=== PATIENT | female | born 1970 | race Caucasian/White ===

== ENCOUNTER → 2018-02-08 | Outpatient (REF) | payer OTHER | LOC: M SFHCLERA 20:56 | DX: K52.9 Noninfective gastroenteritis and colitis, unspecified (principal) ==

== ENCOUNTER → 2018-10-10 | Outpatient (REF) | payer OTHER | LOC: M SFHCLERA 17:40 | DX: R53.81 Other malaise (principal) ==

== ENCOUNTER → 2018-10-10 | Outpatient (CLI) | payer OTHER | LOC: M LRY 17:54 | DX: R19.7 Diarrhea, unspecified (principal) | CPT/HCPCS: 74021 ==

== ENCOUNTER 2019-01-14 16:19 | Emergency (ER) | payer OTHER ==
[~2019-01-14] VITALS: Ht 160 cm; Wt 77.3 kg
[2019-01-14] MEDS ORDERED: GABA-1171 (18:28)
[2019-01-14] MEDS ORDERED: VITA100066 PO (18:28)
[2019-01-14] MEDS ORDERED: LIDOCAINE W/EPINEPHRINE 1% 20ML VIAL SC ONE (18:45)
[2019-01-14] MEDS ORDERED: BUPIVACAINE HCL 0.5% 10 ML VIAL SC ONE (18:45)
[2019-01-14] MEDS ORDERED: CETACAINE SPRAY 5GM TOP ONE (18:45)
[2019-01-14] MEDS ORDERED: NAPR-885 PO (19:12)
[2019-01-14] MEDS ORDERED: CLEO300C2 PO (19:12)
[2019-01-14] MEDS ORDERED: CLINDAMYCIN 150 MG CAP PO ONE (19:15)
[2019-01-14 19:33] VITALS: BP 136/88
[2019-01-14] MEDS ORDERED: DIFL150T PO (20:02)
== END 2019-01-14 19:38 | disposition home or self-care (01) ==
LOC: M ED 16:19
DX: K08.89 Other specified disorders of teeth and supporting structures (principal); Z79.899 Other long term (current) drug therapy

== ENCOUNTER 2019-07-26 18:34 | Emergency (ER) | payer OTHER ==
[~2019-07-26] VITALS: Ht 160 cm; Wt 78.7 kg
[~2019-07-26 18:34] MED LIST: CLEO300C2 PO; DIFL150T PO; GABA-1171; NAPR-885 PO; VITA100066 PO
[2019-07-26] MEDS ORDERED: ACET-897 PO (21:04)
[2019-07-26] MEDS ORDERED: KETO10TAB PO (21:25)
[2019-07-26] MEDS ORDERED: KETOROLAC TROMETHAMINE 10 MG TAB PO ONE (21:30)
[2019-07-26 21:53] VITALS: BP 122/68
--- NOTE | 2019-07-27 07:14 | REP ---
LEFT KNEE, FIVE VIEWS: FINDINGS: There is no evidence of an acute fracture, dislocation or intrinsic bone disease. IMPRESSION: No fracture or dislocation. Electronically Signed by Wander Simmons MD 07/28/2019 05:41 P
== END 2019-07-26 22:43 | disposition home or self-care (01) ==
LOC: M ED 18:34
DX: M25.562 Pain in left knee (principal); Z79.899 Other long term (current) drug therapy

== ENCOUNTER → 2019-10-11 | Outpatient (CLI) | payer OTHER ==
[~2019-10-11] MED LIST changes: +ACET-897 PO; +KETO10TAB PO
--- NOTE | 2019-10-11 13:57 | REP ---
MRI LEFT KNEE: TECHNIQUE: Axial proton density fat saturation, sagittal proton density T2 STIR, water excitation, coronal proton density, proton density fat saturation. There is a tear of the posterior horn of the medial meniscus. The lateral meniscus appears intact. The cruciate and collateral ligaments are intact. Extensor mechanism is intact. There is mild global chondromalacia. There is a more moderate degree of diffuse chondromalacia in the medial joint compartment. There is no bone marrow edema or occult fracture. There is a mild joint effusion diffusely. Septated cyst is seen along the posterior surface of the tendon of medial head of gastrocnemius at its insertion onto the medial femoral condyle. This cyst measures 1.6 x 0.7 x 1.1 cm. IMPRESSION: There is a tear of the posterior horn of the medial meniscus. The lateral meniscus appears intact, as do the cruciate and collateral ligaments. 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 Small diffuse joint effusion. Septated cyst posterior to the medial femoral condyle. Electronically Signed by Wander Simmons MD 10/11/2019 03:54 P
== END ==
LOC: M PLARAD 10:17
PROVIDERS: ATTEND Orthopaedic Surgery Sports Medicine
DX: M25.562 Pain in left knee (principal)

== ENCOUNTER → 2019-11-08 | Outpatient (CLI) | payer OTHER ==
--- NOTE | 2019-11-08 15:24 | REPMRS ---
Patient History The patient states she has not had a clinical breast exam in over a year. No known family history of cancer. No Hormone Replacement Therapy Digital Woman Screen Mammo: November 08, 2019 - Exam #: [id number] Bilateral CC and MLO view(s) were taken. Technologist: Rebecca Valerio, Technologist No prior studies available for comparison. FINDINGS: There are scattered fibroglandular densities. There is no evidence of dominant mass, architectural distortion, or grouped microcalcification typical of malignancy. 3-D tomosynthesis shows no additional findings. Assessment: BI-RADS/ACR category 1 mammogram. Negative Mammogram. Recommendation Routine screening mammogram of both breasts in 1 year (for women over age 40). This patient's Lifetime Breast Cancer RIsk is estimated at 9.4 %. This mammogram was interpreted with the aid of an FDA-approved computer-aided dectection system. Electronically Signed By: Eros Kuhn MD 11/08/19 [id number]
== END ==
LOC: M WHC 14:08
PROVIDERS: ATTEND Nurse Practitioner Adult Health
DX: Z12.31 Encounter for screening mammogram for malignant neoplasm of breast (principal)

== ENCOUNTER → 2020-03-06 | Outpatient (CLI) | payer OTHER ==
--- NOTE | 2020-03-06 17:05 | REP ---
REASON FOR EXAM: Menorrhagia. There are no priors for comparison. Transvesical and transvaginal imaging was obtained. The uterus measures 8.5 x 5 x 6 cm. Within the anterior lower uterine segment, there is a hypoechoic 1.2 x 1.3 x 0.6 cm sized area. Seen in the region of the upper cervix, there is a singularly septated anechoic 1.2 x 1.2 x 1 cm sized cyst. Within the posterior uterine body, there is a 2.5 x 2.2 x 2 cm sized hypoechoic lesion. The endometrial echocomplex is smooth and unremarkable appearing measuring 5 mm in thickness. The right ovary measures 2.3 x 1.3 x 1.3 cm and is within normal limits. The left ovary measures 1.5 x 1.1 x 1.3 cm and is within normal limits. The urinary bladder measures approximately 6.4 x 4.6 x 4.3 cm. IMPRESSION: 1. Uterine myomatous changes in the anterior uterus and within the posterior uterus as described above. 2. There is a septated nabothian cyst. 3. It should be mentioned that the technologist has placed on the patient's worksheet scanned into the [employer] that the examination is technically limited due to the patient's intestinal gas pattern and body habitus.
== END ==
LOC: M WHC 14:56
PROVIDERS: ATTEND Specialist
DX: N92.0 Excessive and frequent menstruation with regular cycle (principal); N88.8 Other specified noninflammatory disorders of cervix uteri

== ENCOUNTER → 2022-04-14 | Outpatient (CLI) | payer OTHER ==
[~2022-04-14] MED LIST changes: +NORE0.353 PO; +VERA40TA; +ZOLM2.5T20; +ZONI25CA13
== END ==
LOC: M WHC 14:58
PROVIDERS: ATTEND Nurse Practitioner Adult Health
DX: Z12.31 Encounter for screening mammogram for malignant neoplasm of breast (principal)

== ENCOUNTER → 2022-06-17 | Outpatient (CLI) | payer OTHER ==
[~2022-06-17] MED LIST changes: +NORT50CA PO; +PRED20TA PO
[2022-06-17 17:45] LABS: HEMATOCRIT 37.6 % (36.0-47.0); HEMOGLOBIN 12.4 g/dl (12.0-15.5); MEAN CORPUSCULAR HEMOGLOBIN 33.6 pg (27.0-33.0); MEAN CORPUSCULAR VOLUME 101.9 fl (80.0-96.0); PLATELET COUNT, AUTOMATED 327 10^3/uL (150-450); RED BLOOD COUNT 3.69 10^6/uL (4.00-5.40); WHITE BLOOD COUNT 14.7 10^3/uL (4.0-10.0)
[2022-06-17 18:46] LABS: ALT/SGPT 11 U/L (12-78); BILIRUBIN,TOTAL 0.4 MG/DL (0.2-1.0); BLOOD UREA NITROGEN 11 MG/DL (7-18); CALCIUM LEVEL 8.8 MG/DL (8.5-10.1); CARBON DIOXIDE LEVEL 25 MEQ/L (21-32); CHLORIDE LEVEL 108 MEQ/L (98-107); CHOLESTEROL LEVEL 211 MG/DL (<200); CHOLESTEROL RISK RATIO 3.246 (<5); CREATININE FOR GFR 0.63 MG/DL (0.55-1.30); GLOMERULAR FILTRATION RATE > 60.0 (>51); GLUCOSE, FASTING 110 MG/DL (70-100); HDL CHOLESTEROL 65 MG/DL (>40); LDL CHOLESTEROL 121 MG/DL (<100); MAGNESIUM LEVEL 1.8 MG/DL (1.8-2.4); NON-HDL-C 146 MG/DL; POTASSIUM SERUM 4.2 MEQ/L (3.5-5.1); SODIUM LEVEL 139 MEQ/L (136-145); THYROID STIMULATING HORMONE 0.714 uIU/ML (0.358-3.740); TOTAL PROTEIN 7.5 GM/DL (6.4-8.2); TRIGLYCERIDES LEVEL 125 MG/DL (<150)
[2022-06-17 19:13] LABS: TOTAL 25(OH) VITAMIN D 81.5 NG/ML (30.0-100.0); VITAMIN B12 LEVEL 574 PG/ML (247-911)
== END ==
LOC: M PLALAB 15:14
PROVIDERS: ATTEND Nurse Practitioner Adult Health
DX: Z00.00 Encounter for general adult medical examination without abnormal findings (principal); E55.9 Vitamin D deficiency, unspecified; Z13.29 Encounter for screening for other suspected endocrine disorder; Z13.21 Encounter for screening for nutritional disorder; Z13.1 Encounter for screening for diabetes mellitus

== ENCOUNTER 2022-10-25 14:13 | Emergency (ER) | payer OTHER ==
[~2022-10-25] VITALS: Ht 165.1 cm; Wt 75.0 kg
[2022-10-25] MEDS ORDERED: SUMA100T2 (14:19)
[2022-10-25] MEDS ORDERED: VENL75CA47 (14:20)
[2022-10-25] MEDS ORDERED: NS 1,000 ML IV ONE ×2 (18:00→18:05)
[2022-10-25] MEDS ORDERED: KETOROLAC 30 MG/ML 1ML VIAL IM ONE (18:05)
[2022-10-25] MEDS ORDERED: METOCLOPRAMIDE INJ 10MG/2ML VIAL IV ONE (18:05)
[2022-10-25 18:30] LABS: BASO % 0.5 % (0.0-1.0); EOS # 0.5 10^3/uL (0.0-0.5); EOS % 5.5 % (0.0-3.0); HEMATOCRIT 44.2 % (36.0-47.0); HEMOGLOBIN 14.5 g/dl (12.0-15.5); LYMPH # 2.4 10^3/uL (1.5-5.0); LYMPH % 28.3 % (24.0-44.0); MEAN CORPUSCULAR HEMOGLOBIN 33.3 pg (27.0-33.0); MEAN CORPUSCULAR HGB CONC 32.8 g/dl (32.0-36.5); MEAN CORPUSCULAR VOLUME 101.4 fl (80.0-96.0); MONO # 0.6 10^3/uL (0.0-0.8); MONO % 6.4 % (2.0-8.0); NEUTROPHILS % 59.1 % (36.0-66.0); PLATELET COUNT, AUTOMATED 324 10^3/uL (150-450); RED BLOOD COUNT 4.36 10^6/uL (4.00-5.40); WHITE BLOOD COUNT 8.5 10^3/uL (4.0-10.0)
[2022-10-25] MEDS ORDERED: KETOROLAC 30 MG/ML 1ML VIAL IV ONE (18:30)
[2022-10-25 18:53] LABS: ALBUMIN 4.1 G/DL (3.2-5.2); ALKALINE PHOSPHATASE 68 U/L (46-116); ALT/SGPT < 9 U/L (7.0-40); AST/SGOT 13 U/L (<34); BILIRUBIN,DIRECT < 0.1 MG/DL (<0.4); BILIRUBIN,TOTAL 0.3 MG/DL (0.3-1.2); BLOOD UREA NITROGEN 10 MG/DL (9-23); CALCIUM LEVEL 8.9 MG/DL (8.5-10.1); CARBON DIOXIDE LEVEL 26 MMOL/L (20-31); CHLORIDE LEVEL 107 MMOL/L (98-107); CREATININE FOR GFR 0.66 MG/DL (0.55-1.30); GLOMERULAR FILTRATION RATE > 60.0 (>51); GLUCOSE, FASTING 92 MG/DL (60-100); POTASSIUM SERUM 4.1 MMOL/L (3.5-5.1); SODIUM LEVEL 140 MMOL/L (136-145)
[2022-10-25 19:01] LABS: ERYTHROCYTE SEDIMENTATION RATE 9 mm/hr (0-30)
[2022-10-25] MEDS ORDERED: NORCO, ANEXSIA 5/325MG TABLET (HYDROcodone/ACETAMINOPHEN) PO ONE (19:30)
[2022-10-25] MEDS ORDERED: methocarbamoL 750 MG TAB PO ONE (19:30)
[2022-10-25 20:40] VITALS: BP 135/82
== END 2022-10-25 20:42 | disposition home or self-care (01) ==
LOC: M ED 14:13
DX: G43.909 Migraine, unspecified, not intractable, without status migrainosus (principal); Z79.811 Long term (current) use of aromatase inhibitors; Z79.899 Other long term (current) drug therapy
CPT/HCPCS: 80048; 80076; 85025; 85652; 86140; 96361; 96374; 96375; 99284; J1100; J1885; J2765

== ENCOUNTER → 2022-11-09 | Outpatient (REF) | payer OTHER ==
[~2022-11-09] MED LIST changes: +SUMA100T2; +VENL75CA47
[2022-11-09 21:17] LABS: APPEARANCE, URINE MANUAL CLEAR (CLEAR); COLOR, URINE MANUAL YELLOW (YELLOW)
[2022-11-09 21:18] LABS: SPECIFIC GRAVITY,URINE MANUAL 1.025 (1.002-1.035)
[2022-11-09 21:19] LABS: BILIRUBIN, URINE MANUAL NEGATIVE (NEGATIVE); BLOOD URINE MANUAL NEGATIVE (NEGATIVE); GLUCOSE, URINE (UA) MANUAL NEGATIVE (NEGATIVE); KETONE, URINE MANUAL NEGATIVE (NEGATIVE); LEUKOCYTE ESTERASE, URINE MAN POSITIVE (NEGATIVE); NITRITE, URINE MANUAL NEGATIVE (NEGATIVE); PROTEIN, URINE MANUAL NEGATIVE (NEGATIVE); UROBILINOGEN, URINE MANUAL NORMAL (NORMAL)
[2022-11-09 21:56] LABS: BACTERIA, URINE SMALL AMOUNT; HYALINE CAST, URINE NONE SEEN /lpf (0-1); RBC, URINE 0-1 /hpf (0-3); SQUAMOUS EPITHELIAL CELL URINE LARGE AMOUNT /hpf (SMALL AMT); WBC, URINE 15-20 /hpf (0-3); YEAST, URINE MOD AMOUNT
== END ==
LOC: M LAB REF 16:30
PROVIDERS: ATTEND Physician Assistant
DX: N39.0 Urinary tract infection, site not specified (principal)

== ENCOUNTER 2022-11-16 13:09 | Emergency (ER) | payer OTHER ==
[~2022-11-16] VITALS: Ht 165.1 cm; Wt 74.1 kg
[2022-11-16] MEDS ORDERED: FREM225A (13:24)
[2022-11-16] MEDS ORDERED: AMOX875T (13:24)
[2022-11-16] MEDS ORDERED: GNP250TA9 PO (13:25)
[2022-11-16] MEDS ORDERED: PROG1CAP8 PO (13:25)
[2022-11-16 14:19] LABS: RSV AMPLIFICATION NEGATIVE (NEGATIVE)
[2022-11-17] MEDS ORDERED: ALBUTEROL SULFATE 2.5MG/0.5ML INH NEB SOLN NEB ONE (00:55)
[2022-11-17] MEDS ORDERED: ACETAMINOPHEN 325 MG TAB PO ONE (01:20)
[2022-11-17] MEDS ORDERED: predniSONE 20 MG TAB PO ONE (02:20)
[2022-11-17] MEDS ORDERED: ALBUTEROL 90 MCG/ACT 8GM HFA INHALER INH ONE (02:35)
[2022-11-17] MEDS ORDERED: PRED20TA PO (02:38)
[2022-11-17 02:46] VITALS: BP 126/77
== END 2022-11-16 20:06 | disposition left against medical advice (07) ==
LOC: M ED 13:09
DX: Z53.21 Procedure and treatment not carried out due to patient leaving prior to being seen by health care provider (principal)

== ENCOUNTER 2023-01-05 10:24 | Emergency (ER) | payer MEDICAID, OTHER ==
[~2023-01-05] VITALS: Ht 165.1 cm; Wt 71.5 kg
[~2023-01-05 10:24] MED LIST changes: +AMOX875T; +FREM225A; +GNP250TA9 PO; +PROG1CAP8 PO
[2023-01-05 13:32] VITALS: BP 124/80
== END 2023-01-05 13:33 | disposition home or self-care (01) ==
LOC: M ED 10:24
DX: J02.9 Acute pharyngitis, unspecified (principal); B34.8 Other viral infections of unspecified site; I10 Essential (primary) hypertension; G43.909 Migraine, unspecified, not intractable, without status migrainosus; Z79.1 Long term (current) use of non-steroidal anti-inflammatories (NSAID); Z79.899 Other long term (current) drug therapy

== ENCOUNTER 2023-04-27 15:31 | Emergency (ER) | payer MEDICAID, OTHER ==
[~2023-04-27] VITALS: Ht 160 cm; Wt 70.0 kg
[2023-04-27] MEDS ORDERED: VENL150C43 (15:51)
[2023-04-27] MEDS ORDERED: ZOLM2.5T20 (15:51)
[2023-04-27] MEDS ORDERED: NS 1,000 ML IV ONE (16:50)
[2023-04-27] MEDS ORDERED: KETOROLAC 30 MG/ML 1ML VIAL IV ONE (16:50)
[2023-04-27] MEDS ORDERED: ONDANSETRON 4MG 2ML VIAL IV ONE (16:50)
[2023-04-27 17:48] LABS: BASO # 0.1 10^3/uL (0.0-0.2); EOS # 0.2 10^3/uL (0.0-0.5); EOS % 2.2 % (0.0-3.0); HEMATOCRIT 43.7 % (36.0-47.0); HEMOGLOBIN 14.3 g/dl (12.0-15.5); LYMPH # 2.3 10^3/uL (1.5-5.0); LYMPH % 29.4 % (24.0-44.0); MEAN CORPUSCULAR HEMOGLOBIN 33.3 pg (27.0-33.0); MEAN CORPUSCULAR HGB CONC 32.7 g/dl (32.0-36.5); MEAN CORPUSCULAR VOLUME 101.6 fl (80.0-96.0); MONO # 0.4 10^3/uL (0.0-0.8); MONO % 5.5 % (2.0-8.0); NEUTROPHILS # 4.9 10^3/uL (1.5-8.5); NEUTROPHILS % 61.6 % (36.0-66.0); PLATELET COUNT, AUTOMATED 297 10^3/uL (150-450); WHITE BLOOD COUNT 7.9 10^3/uL (4.0-10.0)
[2023-04-27 18:02] LABS: ERYTHROCYTE SEDIMENTATION RATE 14 mm/hr (0-30)
[2023-04-27 18:13] LABS: C REACTIVE PROTEIN QUANTITATIV 0.5 MG/DL (<1.0); MAGNESIUM LEVEL 1.8 MG/DL (1.8-2.4)
[2023-04-27 18:17] LABS: FREE T4 0.75 NG/DL (0.89-1.76)
[2023-04-27 18:18] LABS: THYROID STIMULATING HORMONE 1.583 uIU/ML (0.55-4.78)
[2023-04-27] MEDS ORDERED: SUMAtriptan SUCCINATE 6MG/0.5ML VIAL SC ONE (18:50)
[2023-04-27] MEDS ORDERED: diphenhydrAMINE 50MG/ML VIAL IV ONE (18:50)
[2023-04-27] MEDS ORDERED: VALPROATE SOD INJ 1,000 MG in D5W 50 ML IV ONE (20:45)
[2023-04-27 21:45] VITALS: O2SAT 97
[2023-04-27 22:23] VITALS: BP 122/70; TEMP 97.1
== END 2023-04-27 22:38 | disposition home or self-care (01) ==
LOC: M ED 15:31
DX: G43.909 Migraine, unspecified, not intractable, without status migrainosus (principal); F10.10 Alcohol abuse, uncomplicated; Z79.1 Long term (current) use of non-steroidal anti-inflammatories (NSAID); Z79.899 Other long term (current) drug therapy
CPT/HCPCS: 70450; 72125; 80047; 81001; 83735; 84439; 84443; 84702; 85025; 85652; 86140; 96365; 96372; 96375; 99284; J1100; J1200; J1885; J2405; J3030

== ENCOUNTER 2023-09-10 13:30 | Emergency (ER) | payer OTHER ==
[~2023-09-10] VITALS: Ht 160 cm; Wt 73.3 kg
[~2023-09-10 13:30] MED LIST changes: +VENL150C43
[2023-09-10] MEDS ORDERED: MECLIZINE 25 MG TABLET PO ONE (16:50)
[2023-09-10] MEDS ORDERED: METOCLOPRAMIDE INJ 10MG/2ML VIAL IV ONE (16:50)
[2023-09-10] MEDS ORDERED: diphenhydrAMINE 50MG/ML VIAL IV ONE (16:50)
[2023-09-10] MEDS ORDERED: NS 1,000 ML IV ONE ×2 (16:50→20:25)
[2023-09-10] MEDS ORDERED: KETOROLAC 30 MG/ML 1ML VIAL IV ONE (16:50)
[2023-09-10 18:03] LABS: BASO # 0.1 10^3/uL (0.0-0.2); BASO % 0.6 % (0.0-1.0); EOS # 0.5 10^3/uL (0.0-0.5); EOS % 4.4 % (0.0-3.0); HEMATOCRIT 40.5 % (36.0-47.0); HEMOGLOBIN 14.1 g/dl (12.0-15.5); LYMPH # 2.8 10^3/uL (1.5-5.0); LYMPH % 24.8 % (24.0-44.0); MEAN CORPUSCULAR HEMOGLOBIN 34.2 pg (27.0-33.0); MEAN CORPUSCULAR HGB CONC 34.8 g/dl (32.0-36.5); MEAN CORPUSCULAR VOLUME 98.3 fl (80.0-96.0); MONO # 0.7 10^3/uL (0.0-0.8); MONO % 6.4 % (2.0-8.0); NEUTROPHILS # 7.3 10^3/uL (1.5-8.5); NEUTROPHILS % 63.3 % (36.0-66.0); PLATELET COUNT, AUTOMATED 326 10^3/uL (150-450); RED BLOOD COUNT 4.12 10^6/uL (4.00-5.40); WHITE BLOOD COUNT 11.5 10^3/uL (4.0-10.0)
[2023-09-10 18:16] LABS: INR 1.09; PROTHROMBIN TIME 13.8 SECONDS (12.5-14.5)
[2023-09-10 18:17] LABS: PARTIAL THROMBOPLASTIN TIME 29.7 SECONDS (24.8-34.2)
[2023-09-10 18:23] LABS: CK-MB VALUE MASS < 1.0 NG/ML (<3.6)
[2023-09-10 18:25] LABS: BLOOD UREA NITROGEN 9 MG/DL (9-23); CALCIUM LEVEL 8.8 MG/DL (8.5-10.1); CARBON DIOXIDE LEVEL 24 MMOL/L (20-31); CHLORIDE LEVEL 105 MMOL/L (98-107); CPK CREATINE PHOSPHOKINASE 16 U/L (34-145); CREATININE FOR GFR 0.64 MG/DL (0.55-1.30); GLOMERULAR FILTRATION RATE > 60.0 (>51); GLUCOSE, FASTING 84 MG/DL (60-100); MB/CK RELATIVE INDEX 6.25 (< OR =4); POTASSIUM SERUM 4.2 MMOL/L (3.5-5.1); SODIUM LEVEL 138 MMOL/L (136-145)
[2023-09-10] MEDS ORDERED: HALOPERIDOL 5MG/ML 1ML VIAL IV ONE (18:25)
[2023-09-10 18:27] LABS: THYROID STIMULATING HORMONE 2.126 uIU/ML (0.55-4.78)
[2023-09-10 18:28] LABS: FREE T4 0.79 NG/DL (0.89-1.76)
[2023-09-10] MEDS ORDERED: ONDA4TAB6 PO (21:33)
[2023-09-10 21:44] VITALS: BP 97/54; TEMP 98.1; O2SAT 100
== END 2023-09-10 22:09 | disposition home or self-care (01) ==
LOC: M ED 13:30
DX: G43.909 Migraine, unspecified, not intractable, without status migrainosus (principal); E86.0 Dehydration; R42 Dizziness and giddiness; Z79.83 Long term (current) use of bisphosphonates; Z79.1 Long term (current) use of non-steroidal anti-inflammatories (NSAID); Z79.811 Long term (current) use of aromatase inhibitors; Z79.899 Other long term (current) drug therapy
CPT/HCPCS: 70450; 72125; 80048; 82550; 82553; 83605; 83735; 84439; 84443; 85025; 85610; 85730; 93005; 96361; 96374; 96375; 99284; J1200; J1630; J1885; J2765

== ENCOUNTER → 2023-10-11 | Outpatient (REF) | payer OTHER ==
[~2023-10-11] MED LIST changes: +ONDA4TAB6 PO
== END ==
LOC: M LAB REF 16:12
PROVIDERS: ATTEND Physician Assistant Medical
DX: B34.9 Viral infection, unspecified (principal)

== ENCOUNTER → 2023-10-31 | Outpatient (REF) | payer OTHER | LOC: M LAB REF 21:57 | PROVIDERS: ATTEND Physician Assistant Medical | DX: J02.9 Acute pharyngitis, unspecified (principal) ==

== ENCOUNTER → 2023-12-20 | Outpatient (REF) | payer OTHER | LOC: M LAB REF 21:24 | PROVIDERS: ATTEND Physician Assistant | DX: J02.9 Acute pharyngitis, unspecified (principal) ==

== ENCOUNTER 2024-04-04 16:39 | Emergency (ER) | payer OTHER ==
[~2024-04-04] VITALS: Ht 160 cm; Wt 75.6 kg
[2024-04-04] MEDS ORDERED: CETI-24 (16:54)
[2024-04-04] MEDS ORDERED: SUMA20SP4 (16:54)
[2024-04-04] MEDS ORDERED: VERA80TA3 (16:54)
[2024-04-04] MEDS ORDERED: FLUTISP (16:54)
[2024-04-04] MEDS ORDERED: ZONI100C67 (16:54)
[2024-04-04] MEDS ORDERED: ISOVUE-370 76% 100ML VIAL As Ordered ONE (17:58)
[2024-04-04] MEDS: diphenhydrAMINE 50MG/ML VIAL IV STA (18:18)
[2024-04-04] MEDS: KETOROLAC 30 MG/ML 1ML VIAL IV ONE (18:18)
[2024-04-04] MEDS: ACETAMINOPHEN 500 MG TAB PO ONE (18:19)
[2024-04-04] MEDS: METOCLOPRAMIDE INJ 10MG/2ML VIAL IV ONE (18:19)
[2024-04-04 18:45] LABS: BASO # 0.1 10^3/uL (0.0-0.2); BASO % 1.2 % (0.0-1.0); EOS # 0.3 10^3/uL (0.0-0.5); EOS % 3.4 % (0.0-3.0); HEMATOCRIT 41.1 % (36.0-47.0); HEMOGLOBIN 13.9 g/dl (12.0-15.5); LYMPH # 3.1 10^3/uL (1.5-5.0); LYMPH % 40.1 % (24.0-44.0); MEAN CORPUSCULAR HEMOGLOBIN 34.3 pg (27.0-33.0); MEAN CORPUSCULAR HGB CONC 33.8 g/dl (32.0-36.5); MEAN CORPUSCULAR VOLUME 101.5 fl (80.0-96.0); MONO # 0.4 10^3/uL (0.0-0.8); MONO % 5.6 % (2.0-8.0); NEUTROPHILS # 3.8 10^3/uL (1.5-8.5); NEUTROPHILS % 49.3 % (36.0-66.0); PLATELET COUNT, AUTOMATED 337 10^3/uL (150-450); RED BLOOD COUNT 4.05 10^6/uL (4.00-5.40); WHITE BLOOD COUNT 7.7 10^3/uL (4.0-10.0)
[2024-04-04] MEDS ORDERED: AMOX500T PO (19:01)
[2024-04-04 19:02] VITALS: TEMP 98
[2024-04-04 19:09] VITALS: BP 130/58; O2SAT 97
== END 2024-04-04 19:17 | disposition home or self-care (01) ==
LOC: M ED 16:39
DX: J02.9 Acute pharyngitis, unspecified (principal); R59.0 Localized enlarged lymph nodes; I10 Essential (primary) hypertension; G43.909 Migraine, unspecified, not intractable, without status migrainosus; Z79.2 Long term (current) use of antibiotics; Z79.1 Long term (current) use of non-steroidal anti-inflammatories (NSAID); Z79.82 Long term (current) use of aspirin; Z79.899 Other long term (current) drug therapy
CPT/HCPCS: 70491; 80047; 85025; 87486; 87581; 87633; 87798; 87880; 96374; 96375; 99284; J1200; J1885; J2765; Q9967

== ENCOUNTER → 2024-04-22 | Outpatient (CLI) | payer OTHER ==
[~2024-04-22] MED LIST changes: +AMOX500T PO; +CETI-24; +FLUTISP; +ONDA-282 PO; -ONDA4TAB6 PO; +SUMA20SP4; +VERA80TA3; +ZONI100C67
[2024-04-22 18:16] LABS: HEMATOCRIT 41.5 % (36.0-47.0); HEMOGLOBIN 13.8 g/dl (12.0-15.5); MEAN CORPUSCULAR HEMOGLOBIN 33.3 pg (27.0-33.0); MEAN CORPUSCULAR HGB CONC 33.3 g/dl (32.0-36.5); MEAN CORPUSCULAR VOLUME 100.2 fl (80.0-96.0); PLATELET COUNT, AUTOMATED 341 10^3/uL (150-450); RED BLOOD COUNT 4.14 10^6/uL (4.00-5.40); WHITE BLOOD COUNT 9.4 10^3/uL (4.0-10.0)
[2024-04-22 18:21] LABS: THYROID STIMULATING HORMONE 3.628 uIU/ML (0.55-4.78); TOTAL 25(OH) VITAMIN D 85.8 NG/ML (20.0-100.0)
[2024-04-22 18:24] LABS: ALKALINE PHOSPHATASE 83 U/L (46-116); ALT/SGPT < 9 U/L (7.0-40); AST/SGOT < 8 U/L (<34); BILIRUBIN,TOTAL 0.4 MG/DL (0.3-1.2); BLOOD UREA NITROGEN 9 MG/DL (9-23); CARBON DIOXIDE LEVEL 22 MMOL/L (20-31); CHLORIDE LEVEL 110 MMOL/L (98-107); CHOLESTEROL LEVEL 204 MG/DL (<200); FREE T4 0.84 NG/DL (0.89-1.76); GLOMERULAR FILTRATION RATE > 60.0 (>51); GLUCOSE, FASTING 95 MG/DL (60-100); HDL CHOLESTEROL 58.2 MG/DL (>40); LDL CHOLESTEROL 109.8 MG/DL (<100); NON-HDL-C 145.8 MG/DL; POTASSIUM SERUM 4.2 MMOL/L (3.5-5.1); SODIUM LEVEL 139 MMOL/L (136-145); TOTAL PROTEIN 7.1 G/DL (5.7-8.2); TRIGLYCERIDES LEVEL 180 MG/DL (<150)
== END ==
LOC: M PLALAB 14:49
PROVIDERS: ATTEND Nurse Practitioner Adult Health
DX: Z00.00 Encounter for general adult medical examination without abnormal findings (principal)

== ENCOUNTER → 2024-06-06 | Outpatient (CLI) | payer OTHER | LOC: M WHC 13:14 | PROVIDERS: ATTEND Nurse Practitioner Adult Health | DX: Z12.31 Encounter for screening mammogram for malignant neoplasm of breast (principal) ==

== ENCOUNTER → 2024-08-29 | Outpatient (CLI) | payer OTHER ==
[~2024-08-29] MED LIST changes: +ISOVUE-370 76% 100ML VIAL As Ordered ONE
== END ==
LOC: M RAD 09:03
PROVIDERS: ATTEND Otolaryngology
DX: Z87.898 Personal history of other specified conditions (principal)
CPT/HCPCS: 70491; Q9967

== ENCOUNTER → 2024-09-03 | Outpatient (REF) | payer OTHER ==
[~2024-09-03] MED LIST changes: -ISOVUE-370 76% 100ML VIAL As Ordered ONE
== END ==
LOC: M SFHCPLAZ 16:56
PROVIDERS: ATTEND Nurse Practitioner Adult Health
DX: R09.81 Nasal congestion (principal)

== ENCOUNTER 2024-11-20 12:04 | Observation (INO) | payer OTHER ==
[~2024-11-20] VITALS: Ht 160 cm; Wt 81.0 kg
[~2024-11-20 12:04] MED LIST changes: +SUMA100T2 PO
[2024-11-20 12:44] LABS: BASO # 0.1 10^3/uL (0.0-0.2); BASO % 0.9 % (0.0-1.0); EOS # 0.4 10^3/uL (0.0-0.5); HEMATOCRIT 36.1 % (36.0-47.0); HEMOGLOBIN 12.1 g/dl (12.0-15.5); LYMPH # 1.6 10^3/uL (1.5-5.0); LYMPH % 23.5 % (24.0-44.0); MEAN CORPUSCULAR HEMOGLOBIN 32.5 pg (27.0-33.0); MEAN CORPUSCULAR HGB CONC 33.5 g/dl (32.0-36.5); MONO # 0.6 10^3/uL (0.0-0.8); NEUTROPHILS # 4.3 10^3/uL (1.5-8.5); NEUTROPHILS % 62.2 % (36.0-66.0); PLATELET COUNT, AUTOMATED 308 10^3/uL (150-450); RED BLOOD COUNT 3.72 10^6/uL (4.00-5.40)
[2024-11-20 13:09] LABS: ALBUMIN 3.7 G/DL (3.2-5.2); ALKALINE PHOSPHATASE 73 U/L (35-104); ALT/SGPT 13 U/L (7.0-40); AST/SGOT 13 U/L (<34); BILIRUBIN,DIRECT 0.1 MG/DL (<0.4); BILIRUBIN,TOTAL 0.4 MG/DL (0.3-1.2); BLOOD UREA NITROGEN 14 MG/DL (9-23); CARBON DIOXIDE LEVEL 30 MMOL/L (20-31); CHLORIDE LEVEL 108 MMOL/L (98-107); CREATININE FOR GFR 0.59 MG/DL (0.55-1.30); GLOMERULAR FILTRATION RATE > 60.0 (>51); GLUCOSE, FASTING 121 MG/DL (60-100); POTASSIUM SERUM 4.3 MMOL/L (3.5-5.1); SODIUM LEVEL 143 MMOL/L (136-145); TOTAL PROTEIN 6.6 G/DL (5.7-8.2)
[2024-11-20 14:15] LABS: CK-MB VALUE MASS < 1.0 NG/ML (<3.6)
[2024-11-20 14:17] LABS: CPK CREATINE PHOSPHOKINASE 26 U/L (34-145); MB/CK RELATIVE INDEX 3.84 (< OR =4)
[2024-11-20] MEDS: IPRATROPIUM 0.5MG/ALBUTEROL 2.5MG INH SOL UD 3ML (DUONEB) NEB SCH ×2 (15:00→16:36)
[2024-11-20] MEDS: dexAMETHasone 20MG/5ML VIAL IV ONE (15:06)
[2024-11-20] MEDS ORDERED: ISOVUE-370 76% 100ML VIAL As Ordered ONE (16:33)
[2024-11-20] MEDS: DOXYCYCLINE HYCLATE 100MG TABLET PO ONE (18:05)
[2024-11-20] MEDS: cefTRIAXone SOD 1 GM in DEXTROSE 5% (D5W) ADV/MINI-BAG 50 ML IV ONE (18:05)
[2024-11-20] MEDS ORDERED: RA M500C PO (18:25)
[2024-11-20] MEDS ORDERED: REST0.057 OU (18:25)
[2024-11-20] MEDS ORDERED: HOME MED LIST COMPLETE! XX SCH (18:25)
[2024-11-20] MEDS ORDERED: SYSTOIN OU (18:25)
[2024-11-20] MEDS ORDERED: ESTR1TAB PO (18:25)
[2024-11-20] MEDS ORDERED: MEDR10TA9 PO (18:25)
[2024-11-20] MEDS ORDERED: AZEL0.05 OU (18:25)
[2024-11-20] MEDS: predniSONE 20 MG TAB PO SCH (19:03)
[2024-11-20] MEDS: LevoFLOXacin 750 MG TABLET PO SCH (19:03)
[2024-11-20 19:24] LABS: PROCALCITONIN <0.04 ng/ml
[2024-11-20] MEDS: LEVALBUTEROL 1.25MG 0.5ML CONCENTRATE NEB NEB SCH (21:22)
[2024-11-20 23:40] VITALS: BP 140/67; TEMP 98.3; O2SAT 97
[2024-11-21 04:18] VITALS: BP 136/63; TEMP 97.6; O2SAT 97
[2024-11-21] MEDS: ACETAMINOPHEN 325 MG TAB PO PRN (04:44)
[2024-11-21] MEDS: SUMAtriptan SUCCINATE 25MG TABLET PO PRN (05:28)
[2024-11-21 06:38] LABS: HEMATOCRIT 35.5 % (36.0-47.0); HEMOGLOBIN 11.8 g/dl (12.0-15.5); MEAN CORPUSCULAR HEMOGLOBIN 32.4 pg (27.0-33.0); MEAN CORPUSCULAR HGB CONC 33.2 g/dl (32.0-36.5); MEAN CORPUSCULAR VOLUME 97.5 fl (80.0-96.0); PLATELET COUNT, AUTOMATED 354 10^3/uL (150-450); RED BLOOD COUNT 3.64 10^6/uL (4.00-5.40); WHITE BLOOD COUNT 11.5 10^3/uL (4.0-10.0)
[2024-11-21 06:55] LABS: BLOOD UREA NITROGEN 15 MG/DL (9-23); CALCIUM LEVEL 9.5 MG/DL (8.5-10.1); CARBON DIOXIDE LEVEL 20 MMOL/L (20-31); CHLORIDE LEVEL 104 MMOL/L (98-107); CREATININE FOR GFR 0.53 MG/DL (0.55-1.30); GLOMERULAR FILTRATION RATE > 60.0 (>51); GLUCOSE, FASTING 248 MG/DL (60-100); POTASSIUM SERUM 3.8 MMOL/L (3.5-5.1); SODIUM LEVEL 138 MMOL/L (136-145)
[2024-11-21] MEDS: estradioL 1 MG TAB PO SCH (08:26)
[2024-11-21] MEDS: diphenhydrAMINE 50MG/ML VIAL IV ONE (08:26)
[2024-11-21] MEDS: ENOXAPARIN 40MG/0.4ML SYRINGE (J1650 PER 10MG) SC SCH (08:26)
[2024-11-21] MEDS: medroxyPROGESTERone 5MG TABLET PO SCH (08:26)
[2024-11-21] MEDS: KETOROLAC 30 MG/ML 1ML VIAL IV ONE (08:26)
[2024-11-21] MEDS ORDERED: SUMAtriptan SUCCINATE 25MG TABLET PO PRN (09:00)
[2024-11-21 10:10] LABS: HEMOGLOBIN A1c 5.5 % (4.0-6.0)
[2024-11-21] MEDS: OMEPRAZOLE 20MG CAP PO SCH (11:36)
[2024-11-21 12:00] VITALS: BP 127/62; TEMP 97.8; O2SAT 97
[2024-11-21] MEDS: FIORICET TAB PO PRN (12:12)
[2024-11-21] MEDS: LEVALBUTEROL 1.25MG 0.5ML CONCENTRATE NEB NEB SCH (13:09)
[2024-11-21] MEDS: ALPRAZolam 0.25 MG TAB PO PRN (14:42)
[2024-11-21 20:00] VITALS: BP 127/69; TEMP 98.5; O2SAT 98
[2024-11-22 04:00] VITALS: BP 119/57; TEMP 97.8; O2SAT 97
[2024-11-22] MEDS ORDERED: PRED20TA PO (09:46)
[2024-11-22] MEDS ORDERED: VENTAER INH (09:46)
[2024-11-22] MEDS ORDERED: HYDR-3363 PO (09:46)
[2024-11-22] MEDS ORDERED: LEVO1TAB40 PO (09:46)
== END 2024-11-22 12:07 | disposition home or self-care (01) ==
LOC: M ED 12:04 → M ED INP 18:23 → M MS4PR 23:20
PROVIDERS: ADMIT Internal Medicine; ATTEND Internal Medicine
DX: J98.01 Acute bronchospasm (principal); G43.909 Migraine, unspecified, not intractable, without status migrainosus; Z63.4 Disappearance and death of family member; F41.0 Panic disorder [episodic paroxysmal anxiety]; J18.9 Pneumonia, unspecified organism; N95.1 Menopausal and female climacteric states; Z79.890 Hormone replacement therapy; Z79.899 Other long term (current) drug therapy
CPT/HCPCS: 36415; 71046; 71275; 80048; 80076; 82550; 82553; 83036; 84145; 84484; 85025; 85027; 87486; 87581; 87633; 87798; 93005; 93041; 94640; 94760; 96372; 96374; 96375; 99285; J0696; J1100; J1200; J1650; J1885; J7512; Q9967

== ENCOUNTER 2024-11-24 18:18 | Observation (INO) | payer OTHER ==
[~2024-11-24] VITALS: Ht 160 cm; Wt 81.5 kg
[~2024-11-24 18:18] MED LIST changes: +AZEL0.05 OU; +ESTR1TAB PO; +HYDR-3363 PO; +LEVO1TAB40 PO; +MEDR10TA9 PO; +RA M500C PO; +REST0.057 OU; +SYSTOIN OU; +VENTAER INH
[2024-11-24 18:56] LABS: BASO # 0.1 10^3/uL (0.0-0.2); BASO % 0.7 % (0.0-1.0); EOS # 0.1 10^3/uL (0.0-0.5); EOS % 0.7 % (0.0-3.0); HEMATOCRIT 39.4 % (36.0-47.0); HEMOGLOBIN 13.2 g/dl (12.0-15.5); LYMPH # 4.3 10^3/uL (1.5-5.0); LYMPH % 31.2 % (24.0-44.0); MEAN CORPUSCULAR HEMOGLOBIN 32.7 pg (27.0-33.0); MEAN CORPUSCULAR HGB CONC 33.5 g/dl (32.0-36.5); MEAN CORPUSCULAR VOLUME 97.5 fl (80.0-96.0); NEUTROPHILS # 8.1 10^3/uL (1.5-8.5); NEUTROPHILS % 58.9 % (36.0-66.0); PLATELET COUNT, AUTOMATED 344 10^3/uL (150-450); RED BLOOD COUNT 4.04 10^6/uL (4.00-5.40); WHITE BLOOD COUNT 13.8 10^3/uL (4.0-10.0)
[2024-11-24] MEDS: ONDANSETRON 4MG 2ML VIAL IV ONE (19:09)
[2024-11-24 19:25] LABS: BLOOD UREA NITROGEN 16 MG/DL (9-23); CALCIUM LEVEL 9.6 MG/DL (8.5-10.1); CARBON DIOXIDE LEVEL 24 MMOL/L (20-31); CHLORIDE LEVEL 105 MMOL/L (98-107); CK-MB VALUE MASS < 1.0 NG/ML (<3.6); CREATININE FOR GFR 0.78 MG/DL (0.55-1.30); GLOMERULAR FILTRATION RATE > 60.0 (>51); GLUCOSE, FASTING 84 MG/DL (60-100); MAGNESIUM LEVEL 2.4 MG/DL (1.8-2.4); POTASSIUM SERUM 3.8 MMOL/L (3.5-5.1); SODIUM LEVEL 140 MMOL/L (136-145)
[2024-11-24 19:28] LABS: CPK CREATINE PHOSPHOKINASE 34 U/L (34-145); MB/CK RELATIVE INDEX 2.94 (< OR =4)
[2024-11-24 20:23] LABS: CK-MB VALUE MASS < 1.0 NG/ML (<3.6)
[2024-11-24 20:25] LABS: CPK CREATINE PHOSPHOKINASE 25 U/L (34-145)
[2024-11-24] MEDS: KETOROLAC 30 MG/ML 1ML VIAL IV ONE (22:06)
[2024-11-24] MEDS ORDERED: OMEP40CA5 PO (23:36)
[2024-11-24] MEDS ORDERED: PRED20TA PO (23:36)
[2024-11-24] MEDS ORDERED: HYDR-3363 PO (23:36)
[2024-11-24] MEDS ORDERED: ACET-897 PO (23:36)
[2024-11-24] MEDS ORDERED: ALBU8.5H INH (23:36)
[2024-11-24] MEDS ORDERED: LEVO1TAB40 PO (23:36)
[2024-11-24] MEDS ORDERED: HOME MED LIST COMPLETE! XX SCH (23:40)
[2024-11-24] MEDS: LevoFLOXacin 750 MG TABLET PO SCH (23:51)
[2024-11-24] MEDS: NS (Normal Saline) 0.9% 1,000 ML IV SCH (23:52)
[2024-11-25 00:45] VITALS: BP 116/57; TEMP 98.1; O2SAT 96
[2024-11-25] MEDS: SUMAtriptan SUCCINATE 25MG TABLET PO PRN (01:55)
[2024-11-25 04:00] VITALS: BP 113/58; TEMP 97.6; O2SAT 95
[2024-11-25] MEDS: MOM 30ML SUSPENSION UDC PO PRN (05:48)
[2024-11-25 06:36] LABS: HEMATOCRIT 34.5 % (36.0-47.0); HEMOGLOBIN 11.4 g/dl (12.0-15.5); MEAN CORPUSCULAR VOLUME 96.9 fl (80.0-96.0); PLATELET COUNT, AUTOMATED 289 10^3/uL (150-450); RED BLOOD COUNT 3.56 10^6/uL (4.00-5.40); WHITE BLOOD COUNT 8.4 10^3/uL (4.0-10.0)
[2024-11-25 06:52] LABS: BLOOD UREA NITROGEN 17 MG/DL (9-23); CALCIUM LEVEL 8.5 MG/DL (8.5-10.1); CARBON DIOXIDE LEVEL 25 MMOL/L (20-31); CHLORIDE LEVEL 106 MMOL/L (98-107); CREATININE FOR GFR 0.72 MG/DL (0.55-1.30); GLOMERULAR FILTRATION RATE > 60.0 (>51); GLUCOSE, FASTING 91 MG/DL (60-100); POTASSIUM SERUM 3.9 MMOL/L (3.5-5.1); SODIUM LEVEL 140 MMOL/L (136-145)
[2024-11-25] MEDS: ENOXAPARIN 40MG/0.4ML SYRINGE (J1650 PER 10MG) SC SCH (09:00)
[2024-11-25] MEDS: FIORICET TAB PO ONE (09:40)
[2024-11-25] MEDS: PANTOPRAZOLE 40MG TAB (PROTONIX) PO SCH (09:40)
[2024-11-25] MEDS: estradioL 1 MG TAB PO SCH (10:39)
[2024-11-25] MEDS: medroxyPROGESTERone 5MG TABLET PO SCH (10:39)
[2024-11-25] MEDS ORDERED: ISOVUE-370 76% 100ML VIAL As Ordered ONE (11:03)
[2024-11-25 12:00] VITALS: BP 137/85; TEMP 98.2; O2SAT 97
[2024-11-25] MEDS: ALBUTEROL 90 MCG/ACT 8GM HFA INHALER INH SCH (12:00)
[2024-11-25 13:33] LABS: KETONE, URINE AUTO RFX NEGATIVE (NEGATIVE); LEUKOCYTE ESTERASE UR AUTO RFX NEGATIVE (NEGATIVE); MUCUS, URINE RFX SMALL (NEGATIVE); NITRITE, URINE AUTO RFX NEGATIVE (NEGATIVE); RBC, URINE AUTO RFX 0 /HPF (0-3); SQUAM EPITHELIAL CELL UR AURFX 0 /HPF (0-6); WBC, URINE AUTO RFX 0 /HPF (0-3)
[2024-11-25 17:00] VITALS: BP_SYST 122; BP_SYST 123; BP_SYST 124; BP_DIAS 78; BP_DIAS 79; BP_DIAS 80
[2024-11-25 20:00] VITALS: BP 120/73; TEMP 97.7; O2SAT 96
[2024-11-25] MEDS: predniSONE 20 MG TAB PO SCH (21:43)
[2024-11-25] MEDS: LevoFLOXacin 750 MG TABLET PO SCH (21:43)
[2024-11-26] MEDS: ACETAMINOPHEN 325 MG TAB PO PRN (01:12)
[2024-11-26 04:00] VITALS: BP 131/73; TEMP 96.8; O2SAT 94
[2024-11-26 12:00] VITALS: BP 125/72; TEMP 98.2; O2SAT 100
== END 2024-11-26 14:40 | disposition home or self-care (01) ==
LOC: M ED 18:18 → EDBD 18:18 → M ED INP 18:19 → M MSPAV 11-25 00:45
PROVIDERS: ADMIT Family Medicine; ATTEND Student in an Organized Health Care Education/Training Program
DX: R55 Syncope and collapse (principal); E86.0 Dehydration; J18.9 Pneumonia, unspecified organism; G43.909 Migraine, unspecified, not intractable, without status migrainosus; N95.1 Menopausal and female climacteric states; F41.9 Anxiety disorder, unspecified; Z79.2 Long term (current) use of antibiotics; Z79.52 Long term (current) use of systemic steroids; Z79.890 Hormone replacement therapy; Z79.899 Other long term (current) drug therapy; R39.15 Urgency of urination
CPT/HCPCS: 36415; 70450; 70498; 72125; 80048; 81001; 82550; 82553; 83735; 84439; 84443; 84484; 85025; 85027; 93005; 93041; 93246; 93306; 94640; 94760; 96372; 96374; 96375; 97161; 99285; J1650; J1885; J2405; J7512; Q9967

== ENCOUNTER → 2024-11-26 | Outpatient (CLI) | payer OTHER ==
[~2024-11-26] MED LIST changes: +ALBU8.5H INH; +OMEP40CA5 PO
== END ==
LOC: M EKG 14:53
PROVIDERS: ATTEND Student in an Organized Health Care Education/Training Program
DX: R55 Syncope and collapse (principal); Z53.9 Procedure and treatment not carried out, unspecified reason

== ENCOUNTER → 2024-12-30 | Outpatient (REF) | payer OTHER | LOC: M LAB REF 16:05 | PROVIDERS: ATTEND Physician Assistant Medical | DX: B34.9 Viral infection, unspecified (principal) ==

== ENCOUNTER → 2025-02-05 | Outpatient (CLI) | payer OTHER ==
[~2025-02-05] MED LIST changes: +ISOVUE-370 76% 100ML VIAL As Ordered ONE
== END ==
LOC: M RAD 16:01
PROVIDERS: ATTEND Nurse Practitioner Adult Health
DX: J18.9 Pneumonia, unspecified organism (principal); J98.01 Acute bronchospasm
CPT/HCPCS: 71275; Q9967

== ENCOUNTER 2025-02-16 20:36 | Emergency (ER) | payer OTHER ==
[~2025-02-16] VITALS: Ht 160 cm; Wt 81.8 kg
[~2025-02-16 20:36] MED LIST changes: -ISOVUE-370 76% 100ML VIAL As Ordered ONE
[2025-02-16] MEDS: METOCLOPRAMIDE INJ 10MG/2ML VIAL IV ONE (23:00)
[2025-02-16] MEDS: KETOROLAC 30 MG/ML 1ML VIAL IV ONE (23:01)
[2025-02-16] MEDS: ACETAMINOPHEN *IV* 1,000 MG in IV 1 EA IV ONE (23:05)
[2025-02-16] MEDS: MAG SULF 1GM/100ML (MAG RUN) 1 GM in IV 1 EA IV ONE (23:06)
[2025-02-17 01:00] VITALS: BP 125/66; O2SAT 99
[2025-02-17 01:18] VITALS: TEMP 97.2
== END 2025-02-17 01:22 | disposition home or self-care (01) ==
LOC: M ED 20:36
DX: G43.909 Migraine, unspecified, not intractable, without status migrainosus (principal); K21.9 Gastro-esophageal reflux disease without esophagitis; Z79.899 Other long term (current) drug therapy; Z79.1 Long term (current) use of non-steroidal anti-inflammatories (NSAID)
CPT/HCPCS: 70450; 96365; 96366; 96367; 96375; 99284; J0131; J1100; J1885; J2765; J3475

== ENCOUNTER → 2025-06-16 | Outpatient (CLI) | payer MEDICARE | LOC: M WHC 15:06 | PROVIDERS: ATTEND Specialist | DX: Z12.31 Encounter for screening mammogram for malignant neoplasm of breast (principal); R92.323 Mammographic fibroglandular density, bilateral breasts ==

== ENCOUNTER → 2025-07-29 | Outpatient (CLI) | payer MEDICARE ==
[~2025-07-29] MED LIST changes: +METHACHOLINE KIT (6 VIAL.NEB PREMIX) INH ONE
== END ==
LOC: M CARPUL 13:43
PROVIDERS: ATTEND Physician Assistant
DX: R06.00 Dyspnea, unspecified (principal)
CPT/HCPCS: 94070; 95070; J7674

== ENCOUNTER 2025-11-02 15:58 | Emergency (ER) | payer MEDICARE, OTHER ==
[~2025-11-02] VITALS: Ht 160 cm; Wt 79.5 kg
[~2025-11-02 15:58] MED LIST changes: -METHACHOLINE KIT (6 VIAL.NEB PREMIX) INH ONE
[2025-11-02] MEDS ORDERED: ACETAMINOPHEN 500 MG TAB As Ordered ONE (16:23)
[2025-11-02] MEDS: ACETAMINOPHEN 500 MG TAB PO ONE (16:29)
[2025-11-02 16:45] LABS: BASO # 0.0 10^3/uL (0.0-0.2); BASO % 0.3 % (0.0-1.0); EOS # 0.0 10^3/uL (0.0-0.5); EOS % 1.1 % (0.0-3.0); LYMPH # 1.4 10^3/uL (1.5-5.0); LYMPH % 38.3 % (24.0-44.0); MONO # 0.4 10^3/uL (0.0-0.8); MONO % 10.6 % (2.0-8.0); NEUTROPHILS # 1.8 10^3/uL (1.5-8.5); NEUTROPHILS % 49.4 % (36.0-66.0); PLATELET COUNT, AUTOMATED 258 10^3/uL (150-450)
[2025-11-02 16:47] LABS: SOFIA COVID ANTIGEN NEGATIVE (NEGATIVE)
[2025-11-02 17:12] LABS: CALCIUM LEVEL 8.0 MG/DL (8.5-10.1); CARBON DIOXIDE LEVEL 27 MMOL/L (20-31); CHLORIDE LEVEL 101 MMOL/L (98-107); CREATININE FOR GFR 0.65 MG/DL (0.55-1.30); GLOMERULAR FILTRATION RATE > 90.0 (>51); POTASSIUM SERUM 3.7 MMOL/L (3.5-5.1); SODIUM LEVEL 136 MMOL/L (136-145)
[2025-11-02] MEDS: OSELTAMIVIR PHOSPHATE 75 MG CAP PO ONE (18:16)
[2025-11-02] MEDS ORDERED: OSEL75CA PO (19:38)
[2025-11-02 20:29] VITALS: BP 122/73; TEMP 98.3; O2SAT 98
== END 2025-11-02 20:31 | disposition home or self-care (01) ==
LOC: M ED 18:10
DX: R55 Syncope and collapse (principal); J09.X2 Influenza due to identified novel influenza A virus with other respiratory manifestations; K21.9 Gastro-esophageal reflux disease without esophagitis